=== PATIENT | female | born 2005 | race Caucasian/White ===

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

== ENCOUNTER 2024-12-10 18:56 | Emergency (ER) | payer OTHER, SELFPAY ==
--- NOTE | ~2024-12-10 | XR_ITS ---
CHEST RADIOGRAPH CLINICAL HISTORY: chest tightness . COMPARISON: 03/04/2023 TECHNIQUE: Single portable view of the chest. FINDINGS The cardiomediastinal silhouette is unremarkable. The lungs are clear. Visualized osseous structures and soft tissues are unremarkable. IMPRESSION: No focal infiltrate or effusion. Reviewed, dictated and finalized at location A.
--- OUTSIDE RECORDS SUMMARY | 2024-12-10 18:59 | XMS_ITS | Clinical Summary ---
Author Organization [facility] Address [address] [place] [id number] Care Team Providers Care Cycle Consultant Name Role Phone Arely Delgado MD Primary Care Provider [phone] Allergies No known active allergies Medications sertraline (ZOLOFT) 50 mg tablet Take 1 tablet (50 mg total) by mouth nightly at bedtime 3 Active hydrOXYzine (ATARAX) 25 mg tablet TAKE 1 AND 1/2 TABLETS BY MOUTH EVERY DAY AT BEDTIME 3 Active etonogestreL (NEXPLANON) 68 mg implantIndications : Contraception by subdermal route Active predniSONE (DELTASONE) 10 mg tabletIndications: Hives Take 3 tabs days 1 & 2, 2 tabs days 3 & 4, 1 tab days 5-7. 13 tablet 5 Active Active Problems No known active problems Encounters Date Type Department Care Team Description 10/06/2024 3:30 PM SCREENER OPERATOR Office Visit [facility] at [address] [address] Fabi Fagan NP Hives (Primary Dx) from Last 3 Months Medical History Medical History Date Comments Shortness of breath Chest pain Family History Medical History Relation Name Comments Diabetic kidney disease Father Aortic aneurysm Mother Relation Name Status Comments Brother Alive Father Alive Mother Alive Sister Alive Social History Tobacco Use Types Packs/Day Years Used Date Smoking Tobacco: Never Tobacco Cessation:Counseling Given: Not Answered Comments No Sex and Gender Information Value Date Recorded Sex Assigned at Not on file Legal Sex Female 8:08 PM SCREENER OPERATOR Gender Identity Not on file Sexual Orientation Not on file Obstetrics History Last Filed Vital Signs Vital Sign Reading Time Taken Comments Blood Pressure 102/60 10/06/2024 2:31 PM SCREENER OPERATOR Pulse 100 10/06/2024 2:31 PM SCREENER OPERATOR Temperature 36.9 C (98.4 F) 10/06/2024 2:31 PM SCREENER OPERATOR Respiratory Rate 20 10/06/2024 2:31 PM SCREENER OPERATOR Oxygen Saturation 99% 10/06/2024 2:31 PM SCREENER OPERATOR Inhaled Oxygen Concentration - - Weight 58.5 kg (129 lb) 10/06/2024 2:31 PM SCREENER OPERATOR Height 160 cm (5' 3 ) 07/19/2024 3:56 PM SCREENER OPERATOR Body Mass Index 22.85 07/19/2024 3:56 PM SCREENER OPERATOR Plan of Treatment Health Maintenance Due Date Last Done Comments Depression Screening 2004 Hepatitis C Screening 2004 Meningococcal B Vaccine (1 o f 2 - Standard) 2020 Regular Well Visit/Exam 18-64 2022 Covid-19 Vaccine (5 - 2023-2 5 season) 2024 04/27/2022, 08/08/2021, 11/25/2020, Additional history exists DTaP/Tdap/Td Vaccine (7 - Td or Tdap) 02/22/2025 02/22/2015, 06/27/2011, 12/28/2009, Additional history exists Influenza Vaccine (Season Ended) 2025 05/05/2022, 05/04/2021, 05/19/2020, Additional history exists Hepatitis B Screening Completed 2004 , 2004, 2004, Additional history exists Pneumococcal vaccine <65 Completed 006, 2004, 2004, Additional history exists Varicella Vaccines Completed 12/28/2009, 06/30/2005 HPV Vaccines Completed 10/18/2015, 12/2014, 02/22/2015 Meningococcal Vaccine Completed 05/04/2021 , 02/22/2015, 06/27/2011 Insurance [facility] [id number] Member Subscriber Plan / Payer (Ef fective 2023-Present) Name:Sharita Tamez Member ID:[id number] Relation to Subscriber:Child Name:ARELIS FREGOSO Subscriber ID:[id number] Date of :1957 (Home) Address: [address] [place] [address] Payer ID:[id number] Type:[employer] HMO/PPO Address: [place] [phone] Care Teams Cycle Consultant Relationship Specialty Start Date End Date Arely Delgado MD [address] [place] [phone] PCP - General Pediatrics 05/29/23
--- OUTSIDE RECORDS SUMMARY | 2024-12-10 18:59 | XMS_ITS | Clinical Summary ---
Author Organization [facility] Address [facility] [place] [address] Care Team Providers Care Med Dir Name Role Phone Unavailable Primary Care Provider Unavailabl e Social History Tobacco Use Types Packs/Day Years Used Date Smoking Tobacco: Never Assessed Comments Unknown Sex and Gender Information Value Date Recorded Sex Assigned at Not on file Legal Sex Female 7:46 PM CDT Gender Identity Not on file Sexual Orientation Not on file Plan of Treatment Health Maintenance Due Date Last Done Comments Annual Physical 2007 HPV Vaccines (1 - 3-dose series) 2019 Meningococcal B Vaccine (1 o f 2 - Standard) 2020 Hepatitis C 2022 DTaP, Tdap and Td Vaccines ( 1 - Tdap) 2023 Hepatitis B Vaccines (1 of 3 - 19+ 3-dose series) 2023 COVID-19 Vaccine (1 - 2023-2 5 season) 2024 Meningococcal Vaccine Aged Out No leslie gonzalo eligible based on patient's age to complete this topic Pneumococcal Vaccine: Pediat rics (0 to 5 Years) and At-Risk Patients (6 to 49 Years) Aged Out No longer eligible b ased on patient's age to complete this topic RSV Immunizations Under 20 Months Aged Out No longer eligible based on patient's age to complete this topic
--- OUTSIDE RECORDS SUMMARY | 2024-12-10 18:59 | XMS_ITS | Clinical Summary ---
Author Organization [facility] Address [address] [facility] [place] [address] Care Team Providers Care Checker And Packer Name Role Phone Arely Delgado MD Primary Care Provider [phone] Source Comments [facility],non-owned Affiliates and Associated Physician Practices is amultiple site organization consisting of ambulatory clinics and hospital sitesin [place], [place], [place] and [place]. This disclosure is being madepursuant to the Care Everywhere program and may not contain all information available regarding this patient. Last updated 18.[facility] [employer] Allergies No known active allergies Medications * Be aware that medications may not be up to date on this document. Alwaysverify current medications with the patient. cetirizine (ZYRTEC) 10 MG tablet Take 10 mg by mouth once daily Active fluticasone propionate (FLONASE) 50 MCG/ACT nasal spray SHAKE LQ AND U 1 SPR IEN QD 0 04/08/2019 Active ibuprofen (MOTRIN) 200 MG tablet Take by mouth every 6 hours as needed for Pain Active Active Problems Problem Noted Date Diagnosed Date Flat foot (pes planus) (acquired), unspecified f oot 05/16/2021 Assessment & Plan (05/16/2021 11:05 AM CDT): PLAN: 1. Questions solicited and answered. 2. Continue with existing conservative treatment program. 3. Medications Prescribed: none 4. Activity Restrictions: none 5. Weightbearing status: No Restrictions 6. Follow up: as needed without X-rays \ Congenital pes planus 05/16/2021 Assessment & Plan (05/16/2021 7:31 PM CDT): PLAN: 1. Questions solicited and answered. 2. Continue with existing conservative treatment program. 3. Medications Prescribed: none 4. Activity Restrictions: none 5. Weightbearing status: No Restrictions 6. Follow up: as needed without X-rays Nondisplaced fracture of fif th right metatarsal bone with routine healing 06/24/2019 Closed nondisplaced fracture of fifth right meta tarsal bone 04/23/2019 Sprain of anterior talofibular ligament of right ankle 04/23/2019 Immunizations Immunization Administration Dates Next Due PrivacyProtector primary monoval ent 12+ yr 0.3mL Purple cap 11/22/2020,11/02/2020 Social History Tobacco Use Types Packs/Day Years Used Date Smoking Tobacco: Never Smokeless Tobacco: Never Comments Unknown Sex and Gender Information Value Date Recorded Sex Assigned at Not on file Legal Sex Female 5:44 AM POURING CRANE OPERATOR Gender Identity Not on file Sexual Orientation Not on file Last Filed Vital Signs Vital Sign Reading Time Taken Comments Blood Pressure - - Pulse - - Temperature - - Respiratory Rate - - Oxygen Saturation - - Inhaled Oxygen Concentration - - Weight 45.9 kg (101 lb 3.1 oz) 05/16/2021 10:08 AM CDT Height 162.6 cm (5' 4 ) 05/16/2021 10:08 AM CDT Body Mass Index 17.37 05/16/2021 10:08 AM CDT Plan of Treatment Health Maintenance Due Date Last Done Comments HIV SCREENING 2019 HPV VACCINE (1 - 3-dose series) 2019 CHLAMYDIA/GONORRHEA SCREENING 2020 MENINGOCOCCAL (Group B) VACCINE SHARED DECISION-MAKING (1 of 2 - Standard) 2020 HEPATITIS C SCREENING 06/06/2022 DTAP/TDAP/TD VACCINES (1 - Tdap) 2023 HEPATITIS B VACCINE (1 of 3 - 19+ 3-dose series) 2023 COVID-19 VACCINE (2023- season) 2024 11/22/2020, 11/02/2020 DEPRESSION SCREENING 08/06/2024 INFLUENZA VACCINE (Season Ended) 2025 05/19/2020, 05/10/2015, 07/13/2014, Additional history exists ZOSTER VACCINE (1 of 2) 2054 HIB VACCINE Aged Out No longer eligi ble based on patient's age to complete this topic MENINGOCOCCAL GROUPS A/C/Y/W VACCINE Aged Out No longer eligible based on patient's age to complete this topic PNEUMOCOCCAL VACCINE Aged Out No long er eligible based on patient's age to complete this topic Insurance [employer] [facility] [employer] [facility] Care Teams Checker And Packer Relationship Specialty Start Date End Date Arely Delgado MD [address] [place] [address] PCP - General Pediatrics 10/20/20
--- OUTSIDE RECORDS SUMMARY | 2024-12-10 18:59 | XMS_ITS | Referral Summary ---
Author Organization [facility] Address [address] [place] [address] Care Team Providers Care Flight Simulator Teacher Name Role Phone Arely Delgado MD Primary Care Provider [phone] Encounters Date Type Department Care Team Description 10/06/2024 3:30 PM BOILER TENDER Office Visit [facility] at [address] [address] Fabi Fagan NP Hives (Primary Dx) from Last 3 Months Allergies No known active allergies Medications sertraline [...] Active Active Problems No known active problems Social History Tobacco Use Types Packs/Day Years Used Date Smoking Tobacco: Never Tobacco Cessation:Counseling Given: Not Answered Comments No Sex and Gender Information Value Date Recorded Sex Assigned at Not on file Legal Sex Female 8:08 PM BOILER TENDER Gender Identity Not on file Sexual Orientation Not on file Last Filed Vital Signs Vital Sign Reading Time Taken Comments Blood Pressure 102/60 10/06/2024 2:31 PM BOILER TENDER Pulse 100 10/06/2024 2:31 PM BOILER TENDER Temperature 36.9 C (98.4 F) 10/06/2024 2:31 PM BOILER TENDER Respiratory Rate 20 10/06/2024 2:31 PM BOILER TENDER Oxygen Saturation 99% 10/06/2024 2:31 PM BOILER TENDER Inhaled Oxygen Concentration - - Weight 58.5 kg (129 lb) 10/06/2024 2:31 PM BOILER TENDER Height 160 cm (5' 3 ) 07/19/2024 3:56 PM BOILER TENDER Body Mass Index 22.85 07/19/2024 3:56 PM BOILER TENDER Plan of Treatment Not on file Insurance [facility] [id number] Care Teams Flight Simulator Teacher Relationship Specialty Start Date End Date Arely Delgado MD [address] [place] [phone] PCP - General Pediatrics 05/29/23
[2024-12-10 19:19] VITALS: BP 131/87; PULSE 121; RESP 20; TEMP 36.9; O2SAT 100
[2024-12-10 20:32] LABS: BEDSIDEPREGUCG Negative (Negative)
[2024-12-10 20:36] LABS: Basophils Percent Auto 0.4 % (0.2-1.2); Eosinophils Percent Auto 0.2 % (0-4.4); Hematocrit 44.3 % (37.0-47.0); Hemoglobin 14.7 g/dL (12.0-15.0); Immature Granulocyte Absolute 0.03 K/mm3 (0.00-0.031); Immature Granulocyte Percent A 0.4 % (0-0.5); Lymphocytes Absolute Auto 1.42 K/mm3 (0.9-3.2); Lymphocytes Percent Auto 17.5 % (18.3-44.2); Mean Corpuscular HGB Conc 33.2 g/dl (32-36); Mean Corpuscular Hemoglobin 29.8 pg (26-34); Mean Corpuscular Volume 89.7 fl (80-100); Mean Platelet Volume 11.1 fl (7.4-10.4); Monocytes Absolute Auto 0.6 K/mm3 (0.1-0.6); Monocytes Percent Auto 7.3 % (2.6-8.5); Neutrophils Percent Auto 74.2 % (45.5-73.1); Platelet Count Result 241 k/mm3 (150-375); Red Blood Count 4.94 M/mm3 (4.2-5.4); Red Cell Distribution Width 11.3 % (11.5-14.5); White Blood Count 8.1 K/mm3 (4.5-10.0)
[2024-12-10 20:46] LABS: Alanine Aminotransferase 15 U/L (6-35); Albumin Level 4.8 g/dL (3.5-5.1); Alkaline Phosphatase 80 U/L (38-126); Anion Gap 13 mmol/L (4-12); Aspartate Amino Transferase 17 U/L (14-36); Bilirubin,Total 0.7 mg/dL (0.2-1.3); Blood Urea Nitrogen 6 mg/dL (7-17); Calcium 9.7 mg/dL (8.4-10.2); Carbon Dioxide 25 mmol/L (22-30); Chloride 102 mmol/L (98-107); Estimated CRCL calculation 102 ml/min; Estimated Glomerular Filt Rate > 60; Glucose 100 mg/dL (65-110); Lipase 84 U/L (23-300); Potassium 3.9 mmol/L (3.4-5.0); Sodium 140 mmol/L (137-145)
[2024-12-10 20:56] LABS: Add Urine Microscopic? YES; Appearance Urine Clear (Clear); Bacteria Urine None Seen /hpf; Bilirubin Urine Negative (Negative); Blood Urine Negative (Negative); Color Urine Yellow (Yellow); Glucose Urine UA Negative (Negative); Ketones Urine 1+ mg/dL (Negative); Leukocyte Esterase Ur 1+ LEU/UL (Negative); Need Manual Microscopic Reviewed; Nitrate Urine Negative (Negative); Non Pathogenic Casts 0-2; Protein Urine Negative (Negative); RBC Urine 0-2 /hpf (0-2); Specific Grav Ur 1.006 (1.001-1.035); Squamous Epithelial Cell Urine None Seen /hpf (Few); Urobilinogen Urine 0.2 mg/dL (<2.0); WBC Urine 0-5 /hpf (0-3)
[2024-12-10] MEDS: FAMOTIDINE 20 MG/2 ML VIAL IV PUSH (21:22)
[2024-12-10] MEDS: PROCHLORPERAZINE EDISYLATE 10 MG/2 ML VIAL IV PUSH (21:23)
[2024-12-10] MEDS: LACTATED RINGERS 1,000 ML 999 ML IV CONT (21:23)
[2024-12-10] MEDS: diphenhydrAMINE HCl INJ 50 MG/ML VIAL 25 MG IV PUSH (21:23)
[2024-12-10] MEDS: SODIUM CHLORIDE 0.9% IV 200 ML (21:24)
--- OUTSIDE RECORDS SUMMARY | 2024-12-10 21:43 | XMS_ITS | Clinical Summary ---
Author Organization [facility] Address [facility] [place] [address] Care Team Providers Care Patient Attendant Name Role Phone Unavailable Primary Care Provider [...]
--- OUTSIDE RECORDS SUMMARY | 2024-12-10 21:43 | XMS_ITS | Referral Summary ---
Author Organization [facility] Address [address] [place] [address] Care Team Providers Care Manager Product Design Name Role Phone Arely Delgado MD Primary Care Provider [phone] Encounters Date Type Department Care Team Description 10/06/2024 3:30 PM CYBER SOFTWARE ENGINEER Office Visit [facility] Care at [address] [address] Fabi Fagan NP Hives (Primary [...] on file Legal Sex Female 8:08 PM CYBER SOFTWARE ENGINEER Gender Identity Not on file Sexual Orientation Not on file Last Filed Vital Signs Vital Sign Reading Time Taken Comments Blood Pressure 102/60 10/06/2024 2:31 PM CYBER SOFTWARE ENGINEER Pulse 100 10/06/2024 2:31 PM CYBER SOFTWARE ENGINEER Temperature 36.9 C (98.4 F) 10/06/2024 2:31 PM CYBER SOFTWARE ENGINEER Respiratory Rate 20 10/06/2024 2:31 PM CYBER SOFTWARE ENGINEER Oxygen Saturation 99% 10/06/2024 2:31 PM CYBER SOFTWARE ENGINEER Inhaled Oxygen Concentration - - Weight 58.5 kg (129 lb) 10/06/2024 2:31 PM CYBER SOFTWARE ENGINEER Height 160 cm (5' 3 ) 07/19/2024 3:56 PM CYBER SOFTWARE ENGINEER Body Mass Index 22.85 07/19/2024 3:56 PM CYBER SOFTWARE ENGINEER Plan of Treatment Not on file Insurance [facility] [id number] Care Teams Manager Product Design Relationship Specialty Start Date End Date Arely Delgado MD [address] [place] [phone] PCP - General Pediatrics 05/29/23
--- OUTSIDE RECORDS SUMMARY | 2024-12-10 21:43 | XMS_ITS | Clinical Summary ---
Author Organization [facility] Address [address] [place] [phone] Care Team Providers Care Grease Worker Name Role Phone Arely Delgado MD Primary Care Provider [phone] Allergies No known active allergies Medications sertraline [...] Department Care Team Description 10/06/2024 3:30 PM RETAIL COVERAGE MERCHANDISER Office Visit [facility] Care at [address] [address] Fabi Fagan NP Hives (Primary [...] on file Legal Sex Female 8:08 PM RETAIL COVERAGE MERCHANDISER Gender Identity Not on file Sexual Orientation Not on file Obstetrics History Last Filed Vital Signs Vital Sign Reading Time Taken Comments Blood Pressure 102/60 10/06/2024 2:31 PM RETAIL COVERAGE MERCHANDISER Pulse 100 10/06/2024 2:31 PM RETAIL COVERAGE MERCHANDISER Temperature 36.9 C (98.4 F) 10/06/2024 2:31 PM RETAIL COVERAGE MERCHANDISER Respiratory Rate 20 10/06/2024 2:31 PM RETAIL COVERAGE MERCHANDISER Oxygen Saturation 99% 10/06/2024 2:31 PM RETAIL COVERAGE MERCHANDISER Inhaled Oxygen Concentration - - Weight 58.5 kg (129 lb) 10/06/2024 2:31 PM RETAIL COVERAGE MERCHANDISER Height 160 cm (5' 3 ) 07/19/2024 3:56 PM RETAIL COVERAGE MERCHANDISER Body Mass Index 22.85 07/19/2024 3:56 PM RETAIL COVERAGE MERCHANDISER Plan of Treatment Health Maintenance Due Date [...] Vaccine Completed 05/04/2021 , 02/22/2015, 06/27/2011 Insurance [facility] [id number] Member Subscriber Plan / Payer (Ef fective 2023-Present) Name:Sharita Tamez Member ID:[id number] Relation to Subscriber:Child Name:ARELIS FREGOSO Subscriber ID:[id number] Date of :1957 (Home) Address[address] [place] [address] Payer ID:[id number] Type:[employer] HMO/PPO Address: [place] [phone] Care Teams Grease Worker Relationship Specialty Start Date End Date Arely Delgado MD [address] [place] [phone] PCP - General Pediatrics 05/29/23
--- OUTSIDE RECORDS SUMMARY | 2024-12-10 21:43 | XMS_ITS | Clinical Summary ---
Author Organization [facility] Address [address] [facility] [place] [address] Care Team Providers Care Firearms Assembly Supervisor Name Role Phone Arely Delgado MD Primary Care Provider [phone] Source Comments [facility],non-owned Affiliates and Associated Physician Practices is amultiple site organization consisting of ambulatory clinics and hospital sitesin [place], [place], [place] and [place]. This disclosure is being madepursuant to the Care Everywhere program and may not contain all information available regarding this patient. Last updated 18.[facility] Process Data Control Allergies No known active allergies Medications * [...] 04/23/2019 Immunizations Immunization Administration Dates Next Due Movirtu primary monoval ent 12+ yr 0.3mL Purple cap 11/22/2020,11/02/2020 Social History Tobacco Use Types Packs/Day Years Used Date Smoking Tobacco: Never Smokeless Tobacco: Never Comments Unknown Sex and Gender Information Value Date Recorded Sex Assigned at Not on file Legal Sex Female 5:44 AM PRODUCTION SUPPORT CONSULTANT Gender Identity Not on file Sexual Orientation [...] patient's age to complete this topic Insurance [employer] [facility] [employer] [facility] Care Teams Firearms Assembly Supervisor Relationship Specialty Start Date End Date Arely Delgado MD [address] [place] [address] PCP - General Pediatrics 10/20/20
[2024-12-10] MEDS: ONDANSETRON INJ 4 MG/2 ML VIAL IV PUSH (22:57)
[2024-12-10] MEDS: LORazepam INJ (*CRX) 2 MG/ML VIAL 1 MG IV PUSH (22:57)
--- NOTE | 2024-12-10 23:17 | ECG_ITS ---
Test Date: 2024-12-10 23:24:59 Measurements Intervals Brick Rate: 90 P: 67 MO: 129 QRS: 73 QRSD: 95 T: 46 QT: 379 QTc: 466 Interpretive Statements SINUS RHYTHM No previous ECG available for comparison Electronically Signed On 12-11-2024 10:08:09 CDT by Lan Grullon M.D.
--- NOTE | 2024-12-10 23:27 | ED.NAVMDI ---
HPI - Nausea/Vomiting/Diarrhea General Chief complaint: Nausea/Vomiting/Diarrhea Stated complaint: Vomiting x 3 days, High anxiety, mult s/sx Time Seen by Provider: 12/10/24 20:56 History of Present Illness HPI Narrative: Patient's history anxiety/panic attacks who has been off of her hydroxyzine presents here feeling like she is having a panic attack, she has also been having nausea vomiting for last few days. Some chest tightness but no abdominal pain. No swelling or history of DVT Related Data Home Medications ?Medication ?Instructions ?Recorded ?Confirmed ?Last Taken ?Type cetirizine 10 mg capsule (Zyrtec) 10 mg PO DAILY PRN 10/03/22 Unknown History Allergies Allergy/AdvReac Type Severity Reaction Status Date / Time No Known Allergies Allergy Mild Verified 12/10/24 18:57 Review of Systems Review of Systems: All systems reviewed & are unremarkable except as noted in HPI and below PMFSH Past Medical History Medical History Allergies Family History Family History Father Alcoholism Mother Heart disease Grandparent Breast cancer Asthma Hypertension Depression Social History Social History Smoking status: Never smoker Alcohol intake: never Substance use: never Substance use type: other Lack of Transportation: No Lack of Food: Never True Current Housing: I Have Housing Concerned About Future Housing: No Difficulty Paying Gas/Electric Bills: No Difficulty Paying for Meds: No Currently Unemployed: No Education: High School Diploma/GED Difficulty w/ Childcare or Family Care: No Living arrangements: with family Occupation/Education: occupation Gender identity (if verbalized by the patient): Female Exam Narrative: EXAMINATION OF ORGAN SYSTEMS/BODY AREAS: Constitutional: Vital signs per nursing GENERAL: Appears quite anxious HEAD: Normal with no signs of head trauma. EYES: EOMI, conjunctiva normal ENT: Hearing grossly intact LUNGS: Clear to auscultation a HEART: Tachycardic ABD: [Soft], [nontender to palpation] EXT: Normal range of motion, no swelling or tenderness to either legs SKIN: [No rashes or lesions.] NEURO: [Alert and oriented x 3. No gross focal sensory or strength deficits.] PSYCH: Normal affect Course Vital Signs Vital signs: Vital Signs Temperature 98.5 F 12/10/24 19:19 Pulse Rate 121 H 12/10/24 19:19 Respiratory Rate 20 12/10/24 19:19 Blood Pressure 131/87 12/10/24 19:19 Pulse Oximetry 100 12/10/24 19:19 Oxygen Delivery Room Air 12/10/24 19:19 Temperature 98.5 F 12/10/24 19:19 Pulse Rate 121 H 12/10/24 19:19 Respiratory Rate 20 12/10/24 19:19 Blood Pressure 131/87 12/10/24 19:19 Pulse Oximetry 100 12/10/24 19:19 Oxygen Delivery Room Air 12/10/24 19:19 MDM - Nausea/Vomiting/Diarrhea MDM Narrative Medical decision making narrative: Patient with history of anxiety/panic attacks presenting here with symptoms consistent with panic attack; she is also nauseous and appears dehydrated. On exam patient is [tachycardic and appears quite anxious]. I will obtain EKG and chest xray to rule out arrhythmia/ischemia, pneumothorax, or other cause of chest discomfort/shortness of breath. Chest x-ray on my independent interpretation does not show any acute abnormality, no pneumothorax or consolidation. EKG - 12-Lead: Performed at 2324. Interpreted by me. [Sinus rhythm]. Rate 90. [Normal] axis. VA-interval [normal]. QRS duration [normal]. QTc [normal]. [No ST segment elevation or depression]. [T-wave normal]. Impression: No EKG evidence of acute ischemia or dysrhythmia. Labs are obtained that were unremarkable other than some ketones in urine consistent with dehydration. Patient is given Compazine, Benadryl fluids, but she did have akathisia reaction to the Compazine so I did give a dose of ativan/zofran. On reevaluation patient is feeling better, resting comfortably, vital signs now stable. I do feel patient is stable for discharge home at this time with followup to their doctor, and return here if symptoms return or worsen. Agreeable to outpatient management. Lab Data 12/10/24 20:28 12/10/24 20:28 Labs: Lab Results 12/10/24 12/10/24 Range/Units 20:25 20:28 WBC 8.1 (4.5-10.0) K/mm3 RBC 4.94 (4.2-5.4) M/mm3 Hgb 14.7 (12.0-15.0) g/dL Hct 44.3 (37.0-47.0) % MCV 89.7 (80-100) fl MCH 29.8 (26-34) pg MCHC 33.2 (32-36) g/dl RDW 11.3 L (11.5-14.5) % Plt Count 241 (150-375) k/mm3 MPV 11.1 H (7.4-10.4) fl Immature Gran % (Auto) 0.4 (0-0.5) % Neut % (Auto) 74.2 H (45.5-73.1) % Lymph % (Auto) 17.5 L (18.3-44.2) % Henderson % (Auto) 7.3 (2.6-8.5) % Eos % (Auto) 0.2 (0-4.4) % Baso % (Auto) 0.4 (0.2-1.2) % Lymph # (Auto) 1.42 (0.9-3.2) K/mm3 Henderson # (Auto) 0.6 (0.1-0.6) K/mm3 Eos # (Auto) 0.0 (0-0.3) K/mm3 Baso # (Auto) 0.0 (0.0-0.1) K/mm3 Abs Immat Gran (auto) 0.03 (0.00-0.031) K/mm3 Absolute Neuts (auto) 6.0 (1.3-6.7) K/mm3 Absolute Nucleated RBC 0.000 (0.0-0.012) K/mm3 Nucleated RBC % 0.0 (0.0-0.2) % Sodium 140 (137-145) mmol/L Potassium 3.9 (3.4-5.0) mmol/L Chloride 102 (98-107) mmol/L Carbon Dioxide 25 (22-30) mmol/L Anion Gap 13 H (4-12) mmol/L BUN 6 L (7-17) mg/dL Creatinine 0.61 L (0.7-1.0) mg/dL Estim Creat Clear Calc 102 ml/min Estimated GFR > 60 (59 - ) Glucose 100 (65-110) mg/dL Calcium 9.7 (8.4-10.2) mg/dL Total Bilirubin 0.7 (0.2-1.3) mg/dL AST 17 (14-36) U/L ALT 15 (6-35) U/L Alkaline Phosphatase 80 (38-126) U/L Total Protein 8.0 (6.3-8.2) g/dL Albumin 4.8 (3.5-5.1) g/dL Lipase 84 (23-300) U/L Urine Color Yellow (Yellow) Urine Appearance Clear (Clear) Urine pH 8.0 (5.0-9.0) Ur Specific [place] 1.006 (1.001-1.035) Urine Protein Negative (Negative) mg/dL Urine Glucose (UA) Negative (Negative) mg/dL Urine Ketones 1+ H (Negative) mg/dL Ur Blood (Man) Negative (Negative) Urine Nitrate Negative (Negative) Urine Bilirubin Negative (Negative) Urine Urobilinogen 0.2 (<2.0) mg/dL Add Ur Microanalysis Reviewed Leukocyte Esterase Rfl 1+ H (Negative) ROSA/UL Urine RBC 0-2 (0-2) /hpf Urine WBC 0-5 (0-3) /hpf Ur Squamous Epith Cells None seen (Few) /hpf Urine Bacteria None seen /hpf Urine Casts 0-2 POC Urine HCG, Qual Negative (Negative) Discharge Plan Discharge Clinical Impression: Nausea & vomiting, Anxiety Patient Disposition: Home Condition: Stable Instructions: Acute Nausea and Vomiting (ED), Anxiety (ED) Additional Instructions: Please follow up with your doctor; you can take the medications as prescribed. You can always return for any further issues especially if you start having nausea and vomiting again, chest pain or shortness of breath. Patient Language: Cameroonian Prescriptions: New famotidine 20 mg tablet 20 mg PO DAILY Qty: 30 0RF ondansetron 4 mg tablet,disintegrating 4 mg PO Q8H PRN (Reason: nausea and vomiting) Qty: 10 0RF hydroxyzine HCl 25 mg tablet 25 mg PO TID PRN (Reason: anxiety) Qty: 20 0RF No Action Zyrtec 10 mg capsule 10 mg PO DAILY PRN Follow-up/Referrals: Danny,MD Arely [Primary Care Provider] - 2 Days
== END 2024-12-10 23:42 | disposition home or self-care (01) ==
PROVIDERS: Emergency Provider Emergency Medicine; PCP Pediatrics
DX: F41.9 Anxiety disorder, unspecified (principal); R11.2 Nausea with vomiting, unspecified
CPT/HCPCS: 36415; 71045; 80053; 81001; 81025; 83690; 85025; 87086; 93005; 96361; 96374; 96375; 99284; J0780; J1200; J2060; J2405; J7120